=== PATIENT | male | born 1975 | race Two or more races ===

== ENCOUNTER 2020-07-14 11:13 | Emergency (ER) | payer OTHER ==
[~2020-07-14] VITALS: Ht 167.6 cm; Wt 59.0 kg
[~2020-07-14 11:13] MED LIST: ACET500T33 PO; Fluconazole PO
--- NOTE | 2020-07-14 12:24 | PHYS DOC ---
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 Patient states that he has had intermittent epigastric pains since he had his colostomy placed in October 2019. Patient stomach pain with nausea only, states that he does not want a vomit because he is afraid that he will disrupt his colostomy site if he vomits. Patient denies chest pain, denies shortness of breath, denies diaphoretic episodes, denies headaches, denies aches and pains and generalized body malaise. Denies fever or chills. Denies loss of taste or loss of smell. Patient is concerned that he has a stomach infection. Patient denies any other physical complaints or physi cynthia concerns. Review of Systems: Review of Systems: 14 body systems of review of systems have been reviewed. See HPI for pertinent positives and negative responses, otherwise all other systems are negative, nonpertinent or noncontributory. Heart Score: C/O Chest Pain: No Risk Factors: Risk Factors: DM, Current or recent (<one month) smoker, HTN, HLP, family history of CAD, obesity. Risk Scores: Score 0 - 3: 2.5% MACE over next 6 weeks - Discharge Home Score 4 - 6: 20.3% MACE over next 6 weeks - Admit for Clinical Observation Score 7 - 10: 72.7% MACE over next 6 weeks - Early Invasive Strategies Allergies: Allergies: Allergies Coded Allergies Type Severity Reaction Last Updated Verified I S O L A T I O N *CONTACT* Allergy Unknown 11/21/19 Yes No Known Medication Allergies Allergy Unknown 11/21/19 Yes Physical Exam: PE: Constitutional: Well developed, well nourished, no acute distress, non-toxic ap pearance. 45-year-old male in no apparent distress. HENT: Normocephalic, atraumatic, bilateral external ears normal, oropharynx moist, no oral exudates, nose normal. Oropharynx pink moist without tonsillar swelling without postnasal drip, no edema, no deep tissue infection process appreciated. Eyes: PERRLA, EOMI, conjunctiva normal, no discharge. Neck: Normal range of motion, no tenderness, supple, no stridor. No nuchal rigidity, no meningismus signs, no midline spinal tenderness appreciated. Cardiovascular:Heart rate regular rhythm, no murmur, heart sounds S1-S2 to auscultation. Lungs & Thorax: Bilateral breath sounds clear to auscultation all lung morgan. Abdomen: Bowel sounds normal, soft, no masses, no pulsatile masses. Tenderness to left upper quadrant area no tenderness to epigastric area with palpation, there is a stoma with colostomy bag to the right lower quadrant area stoma appears noninfected, the stoma is pink, no erythema or edema of the stoma is appreciated., there is stool in the stoma bag. Skin: Warm, dry, no erythema, no rash. Back: No tenderness, no CVA tenderness. Extremities: No tenderness, no cyanosis, no clubbing, ROM intact, no edema. Neurologic: Alert and oriented X 3, normal motor function, normal sensory function, no focal deficits noted. Psychologic: Affect normal, judgement normal, mood normal. Current Patient Data: Labs: Laboratory Tests Test 07/14/20 11:25 07/14/20 12:00 Urine Collection Type Unknown Urine Color [place] Urine Clarity Clear Urine pH 5.5 Urine Specific [place] >=1.030 Urine Protein 100 mg/dL Urine Glucose (UA) Negative mg/dL Urine Ketones (Stick) Trace mg/dL Urine Blood Moderate Urine Nitrite Negative Urine Bilirubin Small Urine Urobilinogen Dipstick 0.2 mg/dL Urine Leukocyte Esterase Small Urine RBC 1-2 /HPF Urine WBC 1-4 /HPF Urine Squamous Epithelial Cells Few /LPF Urine Bacteria Few /HPF Urine Hyaline Casts Moderate /HPF Urine Mucus Mod /LPF Urine Opiates Screen Neg Urine Methadone Screen Neg Urine Barbiturates Neg Urine Phencyclidine Screen Neg Urine Amphetamine/Methamphetamine Neg Urine Benzodiazepines Screen Neg Urine Cocaine Screen Neg Urine Cannabinoids Screen Neg Urine Ethyl Alcohol Neg White Blood Count 9.9 x10^3/uL Red Blood Count 5.89 x10^6/uL Hemoglobin 19.1 g/dL Hematocrit 54.7 % Mean Corpuscular Volume 93 fL Mean Corpuscular Hemoglobin 32 pg Mean Corpuscular Hemoglobin Concent 35 g/dL Red Cell Distribution Width 13.3 % Platelet Count 240 x10^3/uL Neutrophils (%) (Auto) 82 % Lymphocytes (%) (Auto) 10 % Monocytes (%) (Auto) 8 % Eosinophils (%) (Auto) 0 % Basophils (%) (Auto) 0 % Neutrophils # (Auto) 8.2 x10^3/uL Lymphocytes # (Auto) 0.9 x10^3/uL Monocytes # (Auto) 0.8 x10^3/uL Eosinophils # (Auto) 0.0 x10^3/uL Basophils # (Auto) 0.0 x10^3/uL Sodium Level 132 mmol/L Potassium Level 3.6 mmol/L Chloride Level 99 mmol/L Carbon Dioxide Level 18 mmol/L Anion Gap 15 Blood Urea Nitrogen 38 mg/dL Creatinine 1.8 mg/dL Estimated GFR (Cockcroft-Gault) 41.4 BUN/Creatinine Ratio 21 Glucose Level 158 mg/dL Lactic Acid Level 1.5 mmol/L Calcium Level 9.4 mg/dL Total Bilirubin 1.7 mg/dL Aspartate Amino Transf (AST/SGOT) 42 U/L Alanine Aminotransferase (ALT/SGPT) 56 U/L Alkaline Phosphatase 158 U/L Total Protein 10.4 g/dL Albumin 5.1 g/dL Albumin/Globulin Ratio 1.0 Lipase 174 U/L Current Medications Medications (Trade) Dose Ordered Sig/Ramona Route PRN Reason Start Time Stop Time Status Last Admin Dose Admin Ondansetron HCl (Zofran) 4 mg 1X ONCE IVP 07/14/20 12:30 07/14/20 12:34 DC 07/14/20 13:21 Fentanyl Citrate (Fentanyl 2ml Vial) 50 mcg 1X ONCE IVP 07/14/20 12:30 07/14/20 12:34 DC 07/14/20 13:22 Sodium Chloride 1,000 ml @ 1,000 mls/hr 1X ONCE IV 07/14/20 12:30 07/14/20 13:29 DC 07/14/20 13:18 Iohexol (Omnipaque 240 Mg/ml) 30 ml 1X ONCE PO 07/14/20 13:00 07/14/20 13:01 DC 07/14/20 13:45 Iohexol (Omnipaque 300 Mg/ml) 75 ml 1X ONCE IV 07/14/20 13:00 07/14/20 13:01 DC 07/14/20 13:45 Info (CONTRAST GIVEN -- Rx MONITORING) 1 each PRN DAILY PRN MC SEE COMMENTS 07/14/20 13:00 07/14/20 20:31 DC Sodium Chloride 1,000 ml @ 1,000 mls/hr 1X ONCE IV 07/14/20 17:15 07/14/20 18:14 DC 07/14/20 17:29 EKG: EKG: [] Radiology/Procedures: Radiology/Procedures: PATIENT: KATI CALLECCOUNT: [id number] : 1975 LOCATION: ER AGE: 45 SEX: M EXAM STATUS: REG ER ORD. PHYSICIAN: MALLIKA HAWK APRN REASON: ABDOMINAL PAIN WITH COLOSTOMY PROCEDURE: CT ABD PELV W/ORAL&IV CONTRAST EXAM: Abdomen and pelvis CT with intravenous contrast. HISTORY: Pain. TECHNIQUE: Computed tomographic images of the abdomen and pelvis were obtained following the administration of intravenous contrast. Multiplanar reformatting was performed. *One or more of the following individualized dose reduction techniques were utilized for this examination: 1. Automated exposure control. 2. Adjustment of the mA and/or kV according to patient size. 3. Use of iterative reconstruction technique. COMPARISON: 06/29/2019. FINDINGS: Evaluation of the lower thorax is unremarkable. There is a 2.1 cm enhancing lesion within the left hepatic lobe. The gallbladder, pancreas, spleen, adrenal glands and kidneys are unremarkable. The stomach is distended with recently ingested bolus. The appendix is surgically absent. There is a right ventral abdominal wall ostomy. There is evidence of partial sigmoid resection. There are prominent retroperitoneal lymph nodes. The bladder is nondistended. These are not pathologically enlarged. There is no suspicious osseous lesion. IMPRESSION: 1. No acute abdominal or pelvic finding. The previously demonstrated abscess is no longer seen. 2. Stable 2.1 cm enhancing lesion within the left hepatic lobe. The differential includes shunt phenomenon and a flash filling hemangioma. No suspicious hepatic lesion is seen. 3. Decrease in suspected reactive retroperitoneal lymph nodes. Electronically signed by: Helena Moses MD (07/14/2020 2:53 PM) [id number] DICTATED and SIGNED BY: HELENA MOSES MD DATE: 07/14/20 [id number] 0 Course & Med Decision Making: Course & Med Decision Making Pertinent Labs and Imaging studies reviewed. (See chart for details) 45-year-old male, vital signs reviewed, presents emergency department with complaints of abdominal pain. Physical examination concerning for possible abdominal infectious process. An abdominal ED work-up was initiated. The patient was given IV Zofran and IV fentanyl, and 1 L of normal saline. Labs pending at this time. Reexamination of the patient, the patient states she is no longer nauseated, states there is no pain. Patient states that he is ready to go home. CT was nonconcerning for acute abdominal process, reviewed labs with patient, concerning for dehydration related to high hemoglobin. Patient is amenable to staying for an additional liter of normal saline. Upon reexamination of the patient after second liter of saline, the patient states he feels much better and wishes to go home at this time. Patient gave verbal understanding of discharge home instructions, follow-up with primary care doctor that was given today in the ED, return to ER precautions and concerns, patient was discharged home without incident Dragon Disclaimer: Dragon Disclaimer: This electronic medical record was generated, in whole or in part, using a voice recognition dictation system. Departure Departure Impression: Primary Impression: Abdominal pain of unknown etiology Additional Impression: Dehydration Disposition: 01 DC HOME SELF CARE/HOMELESS Condition: GOOD Patient Instructions: Abdominal Pain Additional Instructions: Please follow-up with your primary care doctor. You may use Dr. Vu Bowman at the [facility]. [address] [place] [id number], phone number is [phone]. Please see a primary care doctor this week, you may return to the emergency department for worsening symptoms or other concerns. Please keep well-hydrated and drink plenty of water as you were dehydrated during your emergency department work-up today. We have done an extensive work-up on your abdomen and the complaint of abdominal pain, your symptoms resolved while you are here in the emergency department today, there were no concerning findings. I urged you to follow-up with a primary care for further evaluation into your recurrent abdominal pains. EMERGENCY DEPARTMENT GENERAL DISCHARGE INSTRUCTIONS Thank you for coming to [facility] Emergency Department (ED) today and trusting us with you care. We trust that you had a positive experience in our Emergency Department. If you wish to speak to the department management, you may call the Director at [phone]. YOUR FOLLOW UP INSTRUCTIONS ARE FOLLOWS: 1. Do you have a private Doctor? If you do not have a private doctor, please ask for a resource list of physicians or clinics that may be able to assist you with follow up care. 2. The Emergency Physicain has interpreted your x-rays. The X-Ray specialist will also review them. If there is a change in the findings, you will be notified in 48 hours when at all possible. 3. A lab test or culture has been done, your results will be reviewed and you will be notified if you need a change in treatment. ADDITIONAL INSTRUCTIONS AND INFORMATION: 1. Your care today has been supervised by a physician who is specially trained in emergency care. Many problems require more than one evaluation for a complete diagnosis and treatment. We recommend that you schedule your follow up appointment as recommended to ensure complete treatment of you illness or injury. If you are unable to obtain follow up care and continue to have a problem, or if your condition worsens, we recommend that you return to the ED. 2. We are not able to safely determine your condition over the phone nor are we able to give sound medical advice over the phone. For these safety reasons, if you call for medical advice we will ask you to come to the ED for further evaluation. 3. If you have any questions regarding these discharge instructions please call the ED at [phone]. SAFETY INFORMATION: In the interest of safety, wellness, and injury prevention; we encourage you to wear your sealbelt, if you smoke; quite smoking, and we encourage family to use a protective helmet for bicycling and other sporting events that present an increased risk for head injury. IF YOUR SYMPTOMS WORSEN OR NEW SYMPTOMS DEVELOP, OR YOU HAVE CONCERNS ABOUT YOUR CONDITION; OR IF YOUR CONDITION WORSENS WHILE YOU ARE WAITING FOR YOUR FOLLOW UP APPOINTMENT; EITHER CONTACT YOUR PRIMARY CARE DOCTOR, THE PHYSICIAN WHOSE NAME AND NUMBER YOU WERE GIVEN, OR RETURN TO THE ED IMMEDIATELY. MALLIKA HAWK APRN Jul 14, 2020 12:24
[2020-07-14] MEDS ORDERED: IV NORMAL SALINE 1000ML BAG 1,000 ML IV ONE ×2 (12:30→17:15)
[2020-07-14] MEDS ORDERED: fentaNYL PF VIAL 100 MCG/2 ML VIAL IVP ONE (12:30)
[2020-07-14] MEDS ORDERED: ONDANSETRON PF 4 MG/2 ML VIAL. IVP ONE (12:30)
[2020-07-14 12:47] LABS: BASO % 0 % (0-3); EOS % 0 % (0-3); HEMATOCRIT 54.7 % (39.0-53.0); HEMOGLOBIN 19.1 g/dL (13.0-17.5); LYMPH # 0.9 x10^3/uL (1.0-4.8); LYMPH % 10 % (24-48); MEAN CORPUSCULAR HEMOGLOBIN 32 pg (25-35); MEAN CORPUSCULAR HGB CONC 35 g/dL (31-37); MEAN CORPUSCULAR VOLUME 93 fL (79-100); MONO # 0.8 x10^3/uL (0.0-1.1); MONO % 8 % (0-9); NEUT # 8.2 x10^3/uL (1.8-7.7); NEUT % 82 % (31-73); PLATELET COUNT 240 x10^3/uL (140-400); RED BLOOD COUNT 5.89 x10^6/uL (4.30-5.70); RED CELL DISTRIBUTION WIDTH 13.3 % (11.5-14.5); WHITE BLOOD COUNT 9.9 x10^3/uL (4.0-11.0)
[2020-07-14 12:50] LABS: BILIRUBIN,URINE SMALL (NEG); CLARITY,URINE CLEAR; COLOR,URINE ORANGE; NITRITE,URINE NEGATIVE (NEG); PH,URINE 5.5 (<5.0-8.0); PROTEIN,URINE 100 mg/dL (NEG-TRACE); UROBILINOGEN,URINE 0.2 mg/dL (0.2 mg/dL)
[2020-07-14] MEDS ORDERED: CONTRAST GIVEN. MC PRN (13:00)
[2020-07-14] MEDS ORDERED: IOHEXOL 300 MG/ML 100ML VIAL. IV ONE (13:00)
[2020-07-14] MEDS ORDERED: IOHEXOL 240 MG/ML 50ML VIAL. PO ONE (13:00)
[2020-07-14 13:02] LABS: AMPHETAMINE/METHAMPHETAMINE NEG (NEG); BARBITURATES NEG (NEG); BENZODIAZEPINES NEG (NEG); CANNABINOIDS NEG (NEG); COCAINE NEG (NEG); METHADONE NEG (NEG); OPIATES NEG (NEG); PHENCYCLIDINE NEG (NEG)
[2020-07-14 13:05] LABS: CALCIUM 9.4 mg/dL (8.5-10.1); CREATININE 1.8 mg/dL (0.7-1.3); GFR 41.4; POTASSIUM 3.6 mmol/L (3.5-5.1)
[2020-07-14 13:12] LABS: ALBUMIN 5.1 g/dL (3.4-5.0); TOTAL BILIRUBIN 1.7 mg/dL (0.2-1.0); TOTAL PROTEIN 10.4 g/dL (6.4-8.2)
[2020-07-14 13:26] LABS: HYALINE CASTS, URINE MODERATE /HPF
[2020-07-14 13:27] LABS: BACTERIA,URINE FEW /HPF (0-FEW)
--- NOTE | 2020-07-14 14:56 | RAD ---
EXAM: Abdomen and pelvis CT with intravenous contrast. HISTORY: Pain. TECHNIQUE: Computed tomographic images of the abdomen and pelvis were obtained following the administ ration of intravenous contrast. Multiplanar reformatting was performed. *One or more of the following individualized dose reduction techniques were utilized for this examina tion: 1. Automated exposure control. 2. Adjustment of the mA and/or kV according to patient size. 3. Use of iterative reconstruction technique. COMPARISON: 06/29/2019. FINDINGS: Evaluation of the lower thorax is unremarkable. There is a 2.1 cm enhancing lesion within t he left hepatic lobe. The gallbladder, pancreas, spleen, adrenal glands and kidneys are unremarkable. The stomach is distended with recently ingested bolus. The appendix is surgically absent. There is a right ventral abdominal wall ostomy. There is evidence of partial sigmoid resection. There are promi nent retroperitoneal lymph nodes. The bladder is nondistended. These are not pathologically enlarged. There is no suspicious osseous lesion. IMPRESSION: 1. No acute abdominal or pelvic finding. The previously demonstrated abscess is no longer seen. 2. Stable 2.1 cm enhancing lesion within the left hepatic lobe. The differential includes shunt pheno lisa and a flash filling hemangioma. No suspicious hepatic lesion is seen. 3. Decrease in suspected reactive retroperitoneal lymph nodes. Electronically signed by: Helena Lind MD (07/14/2020 2:53 PM) [id number]
[2020-07-14 20:25] VITALS: BP 116/70
== END 2020-07-14 20:27 | disposition home or self-care (01) ==
LOC: ER 11:13
DX: R10.13 Epigastric pain (principal); E86.0 Dehydration; Z91.041 Radiographic dye allergy status; Z90.89 Acquired absence of other organs; F10.20 Alcohol dependence, uncomplicated; Y90.9 Presence of alcohol in blood, level not specified
CPT/HCPCS: 36415; 74177; 80053; 80307; 81001; 83605; 83690; 85025; 87086; 96361; 96374; 96375; 99285; J2405; J3010; J7030; Q9966; Q9967